=== PATIENT | female | born 1975 | race Caucasian/White ===

== ENCOUNTER 2021-02-20 10:39 | Emergency (ER) | payer MEDICAID | END 2021-02-20 11:07 | disposition left against medical advice (07) | LOC: ER 10:39 | DX: Z53.21 Procedure and treatment not carried out due to patient leaving prior to being seen by health care provider (principal); R51.9 Headache, unspecified ==

== ENCOUNTER 2021-03-23 04:49 | Emergency (ER) | payer MEDICAID ==
[~2021-03-23] VITALS: Ht 162.6 cm; Wt 109.0 kg
[2021-03-23] MEDS ORDERED: VISCOUS LIDOCAINE 2% 15 ML UDC MM PRN (05:45)
[2021-03-23] MEDS ORDERED: SODIUM CHLORIDE 0.9% 1,000 ML IV ONE (05:45)
[2021-03-23] MEDS ORDERED: MAGNESIUM/ALUMINUM HYDROXIDE/SIMETHICONE 30ML UDC PO ONE (05:45)
[2021-03-23] MEDS ORDERED: FAMOTIDINE 20MG TABLET PO ONE (05:45)
[2021-03-23] MEDS ORDERED: ONDANSETRON HCL 4MG/2ML INJ IV ONE (05:45)
[2021-03-23 05:48] LABS: BASOPHILS % 0.3 % (0.0-2.0); HEMATOCRIT. 34.6 % (36.0-48.0); HEMOGLOBIN. 11.7 g/dL (12.0-16.0); LYMPHOCYTES % 16.1 % (20.0-50.0); MEAN CORPUSCULAR HEMOGLOBIN 28.4 pg (28.0-32.0); MEAN CORPUSCULAR VOLUME 84.2 fL (81.0-99.0); MEAN PLATELET VOLUME 7.1 fl (7.4-10.4); MONOCYTES % 6.9 % (2.0-8.0); NEUTROPHILS % 75.7 % (40.0-76.0); PLATELET 364 x1000/uL (130-400); RED CELL DISTRIBUTION WIDTH 14.6 % (11.6-14.6)
[2021-03-23 05:51] LABS: CLARITY URINE CLOUDY (CLEAR); COLOR URINE YELLOW (YELLOW); KETONES URINE NEGATIVE (NEGATIVE); LEUKOCYTE ESTERASE URINE NEGATIVE (NEGATIVE); NITRITE URINE NEGATIVE (NEGATIVE); OCCULT BLOOD URINE 3+ (NEGATIVE); PH URINE 5.5 (4.5-8.0); PROTEIN URINE NEGATIVE (NEGATIVE); SPECIFIC GRAVITY URINE 1.022 (1.005-1.030); UROBILINOGEN URINE 0.2 E.U./dL (0.2-1.0)
[2021-03-23 05:56] LABS: CHLORIDE 106 mEq/L (98-107)
[2021-03-23] MEDS ORDERED: KETOROLAC 30MG/ML VIAL IV STA (06:30)
[2021-03-23] MEDS ORDERED: ONDA4TAB5 MT (08:40)
[2021-03-23] MEDS ORDERED: FAMO40TA70 MT (08:40)
[2021-03-23 08:48] VITALS: BP 137/74
== END 2021-03-23 09:00 | disposition home or self-care (01) ==
LOC: ER 04:49
DX: K29.70 Gastritis, unspecified, without bleeding (principal); D64.9 Anemia, unspecified; I10 Essential (primary) hypertension; E05.90 Thyrotoxicosis, unspecified without thyrotoxic crisis or storm
CPT/HCPCS: 36415; 76705; 80053; 81003; 81025; 82962; 83690; 85025; 93005; 96361; 96374; 96375; 99285; J1885; J2405; J7030

== ENCOUNTER 2021-05-15 20:10 | Emergency (ER) | payer MEDICAID ==
[~2021-05-15] VITALS: Ht 160 cm; Wt 111.0 kg
[~2021-05-15 20:10] MED LIST: FAMO40TA70 MT; ONDA4TAB5 MT
[2021-05-15 21:00] LABS: CLARITY URINE CLOUDY (CLEAR); COLOR URINE YELLOW (YELLOW); KETONES URINE TRACE (NEGATIVE); LEUKOCYTE ESTERASE URINE NEGATIVE (NEGATIVE); NITRITE URINE NEGATIVE (NEGATIVE); OCCULT BLOOD URINE NEGATIVE (NEGATIVE); PH URINE 5.5 (4.5-8.0); PROTEIN URINE NEGATIVE (NEGATIVE); SPECIFIC GRAVITY URINE 1.034 (1.005-1.030)
[2021-05-15 23:44] LABS: BASOPHILS % 0.6 % (0.0-2.0); EOSINOPHILS % 2.6 % (0.0-5.0); HEMATOCRIT. 33.8 % (36.0-48.0); LYMPHOCYTES % 43.7 % (20.0-50.0); MEAN CORPUSCULAR HEMOGLOBIN 27.4 pg (28.0-32.0); MEAN CORPUSCULAR VOLUME 84.2 fL (81.0-99.0); MONOCYTES % 6.7 % (2.0-8.0); NEUTROPHILS % 46.4 % (40.0-76.0); PLATELET 377 x1000/uL (130-400); RED BLOOD CELL COUNT 4.02 mill/uL (4.2-5.4); RED CELL DISTRIBUTION WIDTH 14.9 % (11.6-14.6)
[2021-05-15 23:50] LABS: CHLORIDE 110 mEq/L (98-107)
[2021-05-16 04:39] VITALS: BP 136/87
== END 2021-05-16 04:47 | disposition home or self-care (01) ==
LOC: ER 20:10
DX: J06.9 Acute upper respiratory infection, unspecified (principal); R07.81 Pleurodynia; Z20.822 Contact with and (suspected) exposure to COVID-19; I10 Essential (primary) hypertension; I51.7 Cardiomegaly; E03.9 Hypothyroidism, unspecified
CPT/HCPCS: 36415; 71045; 80053; 81003; 81025; 83880; 84484; 85025; 93005; 99285; C9803; U0003; U0005

== ENCOUNTER 2021-09-20 13:07 | Emergency (ER) | payer MEDICAID ==
[~2021-09-20] VITALS: Ht 157.5 cm; Wt 115.0 kg
[2021-09-20 15:22] LABS: BASOPHILS % 0.5 % (0.0-2.0); EOSINOPHILS % 0.6 % (0.0-5.0); HEMATOCRIT. 34.6 % (36.0-48.0); LYMPHOCYTES % 39.4 % (20.0-50.0); MEAN CORPUSCULAR HEMOGLOBIN 26.5 pg (28.0-32.0); MEAN CORPUSCULAR VOLUME 83.1 fL (81.0-99.0); MONOCYTES % 5.1 % (2.0-8.0); NEUTROPHILS % 54.4 % (40.0-76.0); PLATELET 375 x1000/uL (130-400); RED BLOOD CELL COUNT 4.16 mill/uL (4.2-5.4); RED CELL DISTRIBUTION WIDTH 15.4 % (11.6-14.6)
[2021-09-20 15:29] LABS: CHLORIDE 106 mEq/L (98-107)
[2021-09-20 16:05] LABS: CLARITY URINE CLEAR (CLEAR); COLOR URINE YELLOW (YELLOW); KETONES URINE NEGATIVE (NEGATIVE); LEUKOCYTE ESTERASE URINE NEGATIVE (NEGATIVE); NITRITE URINE NEGATIVE (NEGATIVE); OCCULT BLOOD URINE 2+ (NEGATIVE); PH URINE 5.5 (4.5-8.0); PROTEIN URINE NEGATIVE (NEGATIVE); SPECIFIC GRAVITY URINE 1.016 (1.005-1.030); UROBILINOGEN URINE 0.2 E.U./dL (0.2-1.0)
[2021-09-20] MEDS ORDERED: NAPROXEN 375MG TABLET PO ONE (16:30)
[2021-09-20] MEDS ORDERED: NAPR500T7 MT (16:30)
[2021-09-20 16:45] VITALS: BP 134/83
== END 2021-09-20 16:46 | disposition home or self-care (01) ==
LOC: ER 13:07
DX: N93.9 Abnormal uterine and vaginal bleeding, unspecified (principal); Z86.39 Personal history of other endocrine, nutritional and metabolic disease; Z98.890 Other specified postprocedural states
CPT/HCPCS: 36415; 76830; 76856; 80048; 81003; 81025; 84702; 85025; 86850; 86900; 99284

== ENCOUNTER 2021-11-01 20:18 | Emergency (ER) | payer MEDICAID ==
[~2021-11-01] VITALS: Ht 157.5 cm; Wt 118.0 kg
[~2021-11-01 20:18] MED LIST changes: +NAPR500T7 MT
[2021-11-01 21:12] LABS: CLARITY URINE CLOUDY (CLEAR); COLOR URINE YELLOW (YELLOW); KETONES URINE NEGATIVE (NEGATIVE); LEUKOCYTE ESTERASE URINE NEGATIVE (NEGATIVE); NITRITE URINE NEGATIVE (NEGATIVE); OCCULT BLOOD URINE TRACE (NEGATIVE); PROTEIN URINE NEGATIVE (NEGATIVE); SPECIFIC GRAVITY URINE 1.019 (1.005-1.030); UROBILINOGEN URINE 0.2 E.U./dL (0.2-1.0)
[2021-11-02] MEDS ORDERED: KETOROLAC 30MG/ML VIAL IM ONE (00:45)
[2021-11-02] MEDS ORDERED: NAPR-681 MT (01:44)
[2021-11-02] MEDS ORDERED: T3 PO (01:44)
[2021-11-02 01:53] VITALS: BP 162/96
== END 2021-11-02 02:03 | disposition home or self-care (01) ==
LOC: ER 20:18
DX: S29.012A Strain of muscle and tendon of back wall of thorax, initial encounter (principal); X58.XXXA Exposure to other specified factors, initial encounter; Y93.89 Activity, other specified; Y92.89 Other specified places as the place of occurrence of the external cause
CPT/HCPCS: 81003; 96372; 99283; J1885

== ENCOUNTER 2022-01-25 11:03 | Emergency (ER) | payer MEDICAID, OTHER ==
[~2022-01-25] VITALS: Ht 157.5 cm; Wt 111.0 kg
[~2022-01-25 11:03] MED LIST changes: +NAPR-681 MT; +T3 PO
[2022-01-25] MEDS ORDERED: ALBUTEROL (0.083%) 2.5MG/3ML NEB HHN STA ×2 (11:09→12:20)
[2022-01-25] MEDS ORDERED: IPRATROPIUM BROMIDE (0.02%) 0.5MG/2.5ML NEB HHN STA ×2 (11:09→12:20)
[2022-01-25 12:52] LABS: BASOPHILS % 0.6 % (0.0-2.0); EOSINOPHILS % 0.9 % (0.0-5.0); HEMATOCRIT. 32.9 % (36.0-48.0); HEMOGLOBIN. 10.5 g/dL (12.0-16.0); LYMPHOCYTES % 47.1 % (20.0-50.0); MEAN PLATELET VOLUME 7.1 fl (7.4-10.4); MONOCYTES % 10.7 % (2.0-8.0); NEUTROPHILS % 40.7 % (40.0-76.0); PLATELET 348 x1000/uL (130-400); RED BLOOD CELL COUNT 4.06 mill/uL (4.2-5.4); RED CELL DISTRIBUTION WIDTH 16.8 % (11.6-14.6)
[2022-01-25 12:55] LABS: CHLORIDE 108 mEq/L (98-107)
[2022-01-25] MEDS ORDERED: ALBU6.7H9 INH (13:50)
[2022-01-25 13:55] VITALS: BP 150/82
== END 2022-01-25 14:15 | disposition home or self-care (01) ==
LOC: ER 11:50
DX: J06.9 Acute upper respiratory infection, unspecified (principal); J98.01 Acute bronchospasm; I11.0 Hypertensive heart disease with heart failure; I50.9 Heart failure, unspecified; E03.9 Hypothyroidism, unspecified; E66.01 Morbid (severe) obesity due to excess calories; Z68.41 Body mass index [BMI] 40.0-44.9, adult
CPT/HCPCS: 36415; 71045; 80053; 83880; 84484; 85025; 93005; 94640; 99285; Z7610

== ENCOUNTER 2022-11-08 17:51 | Emergency (ER) | payer MEDICAID ==
[~2022-11-08] VITALS: Ht 157.5 cm; Wt 108.0 kg
[~2022-11-08 17:51] MED LIST changes: +ALBU6.7H3 INH
[2022-11-08 17:55] VITALS: BP 175/100
== END 2022-11-08 20:21 | disposition home or self-care (01) ==
LOC: ER 17:56
DX: S80.01XA Contusion of right knee, initial encounter (principal); M17.12 Unilateral primary osteoarthritis, left knee; I10 Essential (primary) hypertension; W10.8XXA Fall (on) (from) other stairs and steps, initial encounter; Y93.01 Activity, walking, marching and hiking; Y92.89 Other specified places as the place of occurrence of the external cause
CPT/HCPCS: 73560; 99283

== ENCOUNTER 2023-05-16 08:13 | Emergency (ER) | payer MEDICAID ==
[~2023-05-16] VITALS: Ht 157.5 cm; Wt 108.0 kg
[2023-05-16 08:34] VITALS: O2SAT 100
[2023-05-16] MEDS ORDERED: BENZ200C52 MT (10:24)
[2023-05-16 11:30] VITALS: BP 153/98; PULSE 62; RESP 18; TEMP 98.6
== END 2023-05-16 11:36 | disposition home or self-care (01) ==
LOC: ER 08:28
DX: J06.9 Acute upper respiratory infection, unspecified (principal); I10 Essential (primary) hypertension; Z98.890 Other specified postprocedural states; Z86.39 Personal history of other endocrine, nutritional and metabolic disease
CPT/HCPCS: 71045; 99283

== ENCOUNTER 2023-06-06 14:18 | Emergency (ER) | payer MEDICAID ==
[~2023-06-06] VITALS: Ht 157.5 cm; Wt 105.0 kg
[~2023-06-06 14:18] MED LIST changes: +BENZ200C52 MT
[2023-06-06 14:33] VITALS: O2SAT 99
[2023-06-06] MEDS ORDERED: LORAZEPAM 1MG TABLET PO ONE (14:45)
[2023-06-06] MEDS ORDERED: LORAZEPAM 1MG TABLET PO NR (17:00)
[2023-06-06 17:56] VITALS: BP 170/97; PULSE 66; RESP 16; TEMP 97.5
== END 2023-06-06 18:21 | disposition home or self-care (01) ==
LOC: ER 14:18
DX: F43.9 Reaction to severe stress, unspecified (principal); I10 Essential (primary) hypertension; Z98.890 Other specified postprocedural states; M19.90 Unspecified osteoarthritis, unspecified site
CPT/HCPCS: 81025; 99283; Z7610 ×3

== ENCOUNTER 2023-07-08 13:25 | Emergency (ER) | payer MEDICAID ==
[~2023-07-08] VITALS: Ht 167.6 cm; Wt 108.0 kg
[2023-07-08 13:29] VITALS: O2SAT 98
[2023-07-08 14:18] LABS: CLARITY URINE CLEAR (CLEAR); COLOR URINE YELLOW (YELLOW); GLUCOSE URINE NEGATIVE (NEGATIVE); KETONES URINE NEGATIVE (NEGATIVE); LEUKOCYTE ESTERASE URINE NEGATIVE (NEGATIVE); NITRITE URINE NEGATIVE (NEGATIVE); OCCULT BLOOD URINE NEGATIVE (NEGATIVE); PH URINE 6.5 (4.5-8.0); PROTEIN URINE NEGATIVE (NEGATIVE); SPECIFIC GRAVITY URINE 1.021 (1.005-1.030); UROBILINOGEN URINE 0.2 E.U./dL (0.2-1.0)
[2023-07-08 14:36] LABS: BASOPHILS % 0.8 % (0.0-2.0); EOSINOPHILS % 1.8 % (0.0-5.0); HEMATOCRIT. 36.6 % (36.0-48.0); HEMOGLOBIN. 12.5 g/dL (12.0-16.0); LYMPHOCYTES % 41.5 % (20.0-50.0); MEAN CORPUSCULAR HEMOGLOBIN 30.1 pg (28.0-32.0); MEAN CORPUSCULAR HGB CONC 34.1 g/dL (31.0-37.0); MEAN CORPUSCULAR VOLUME 88.2 fL (81.0-99.0); MEAN PLATELET VOLUME 7.5 fl (7.4-10.4); MONOCYTES % 6.5 % (2.0-8.0); NEUTROPHILS % 49.4 % (40.0-76.0); PLATELET 377 x1000/uL (130-400); RED BLOOD CELL COUNT 4.15 mill/uL (4.2-5.4); WHITE BLOOD COUNT 7.8 x1000/uL (4.5-11.0)
[2023-07-08 14:56] LABS: CHLORIDE 107 mEq/L (98-107); INDEX HEMOLYSI 1 (1-3); INDEX ICTERIC 1 (1-4); INDEX LIPEMIC 1 (1-3); SODIUM 137 mEq/L (136-145)
[2023-07-08 15:05] LABS: ALANINE AMINOTRANSFERASE 24 IU/L (13-61); ALBUMIN 3.2 g/dL (3.4-5.0); ASPARTATE AMINOTRANSFERASE 18 IU/L (15-37); BILIRUBIN TOTAL 0.3 mg/dL (0.1-1.0); CALCIUM 8.7 mg/dL (8.5-10.1); CARBON DIOXIDE 28 mEq/L (21-32); CREATININE 0.7 mg/dL (0.6-1.3); GLUCOSE 99 mg/dL (70-105); PROTEIN TOTAL 7.6 g/dL (6.0-8.3); UREA NITROGEN BLOOD 14 mg/dL (7-21)
[2023-07-08] MEDS ORDERED: KETOROLAC 30MG/ML VIAL IM ONE (15:15)
[2023-07-08] MEDS ORDERED: MAGNESIUM/ALUMINUM HYDROXIDE/SIMETHICONE 30ML UDC PO ONE (15:15)
[2023-07-08] MEDS ORDERED: LIDO700A15 TP (16:34)
[2023-07-08] MEDS ORDERED: MAG355OR21 MT (16:34)
[2023-07-08 17:02] VITALS: BP 133/80; PULSE 80; RESP 18; TEMP 98.7
== END 2023-07-08 17:03 | disposition home or self-care (01) ==
LOC: ER 13:25
DX: K29.70 Gastritis, unspecified, without bleeding (principal); I10 Essential (primary) hypertension; Z86.39 Personal history of other endocrine, nutritional and metabolic disease; Z98.890 Other specified postprocedural states
CPT/HCPCS: 99284; 71045; 80053; 81003; 81025; 83690; 85025; 36415; 96372; J1885

== ENCOUNTER 2023-11-04 19:52 | Emergency (ER) | payer MEDICAID ==
[~2023-11-04 19:52] MED LIST changes: +LIDO700A15 TP; +MAG355OR21 MT
== END 2023-11-04 22:45 | disposition left against medical advice (07) ==
LOC: ER 19:52
DX: M54.9 Dorsalgia, unspecified (principal); Z53.21 Procedure and treatment not carried out due to patient leaving prior to being seen by health care provider

== ENCOUNTER 2024-05-26 17:58 | Emergency (ER) | payer MEDICAID, OTHER ==
[~2024-05-26] VITALS: Ht 167.6 cm; Wt 108.0 kg
[2024-05-26 18:02] VITALS: O2SAT 98
[2024-05-26 18:45] LABS: CLARITY URINE CLEAR (CLEAR); COLOR URINE DARK YELLOW (YELLOW); GLUCOSE URINE NEGATIVE (NEGATIVE); KETONES URINE TRACE (NEGATIVE); LEUKOCYTE ESTERASE URINE NEGATIVE (NEGATIVE); NITRITE URINE NEGATIVE (NEGATIVE); OCCULT BLOOD URINE NEGATIVE (NEGATIVE); PH URINE 5.5 (4.5-8.0); PROTEIN URINE NEGATIVE (NEGATIVE); SPECIFIC GRAVITY URINE 1.028 (1.005-1.030)
[2024-05-26 19:08] LABS: BASOPHILS % 0.5 % (0.0-2.0); EOSINOPHILS % 1.3 % (0.0-5.0); HEMATOCRIT. 36.4 % (36.0-48.0); LYMPHOCYTES % 38.6 % (20.0-50.0); MEAN CORPUSCULAR HEMOGLOBIN 30.3 pg (28.0-32.0); MEAN CORPUSCULAR VOLUME 91.8 fL (81.0-99.0); MEAN PLATELET VOLUME 7.2 fl (7.4-10.4); MONOCYTES % 6.8 % (2.0-8.0); NEUTROPHILS % 52.8 % (40.0-76.0); PLATELET 327 x1000/uL (130-400); RED BLOOD CELL COUNT 3.96 mill/uL (4.2-5.4); RED CELL DISTRIBUTION WIDTH 13.4 % (11.6-14.6); WHITE BLOOD COUNT 8.1 x1000/uL (4.5-11.0)
[2024-05-26 19:14] LABS: CARBON DIOXIDE 28 mEq/L (21-32); CHLORIDE 108 mEq/L (98-107); SODIUM 140 mEq/L (136-145)
[2024-05-26 19:19] LABS: CREATININE 0.8 mg/dL (0.6-1.0)
[2024-05-26 19:20] LABS: GLUCOSE 97 mg/dL (70-105); UREA NITROGEN BLOOD 18 mg/dL (9-23)
[2024-05-26 19:21] LABS: ALANINE AMINOTRANSFERASE 10 IU/L (10-49); ALBUMIN 4.3 g/dL (3.2-4.8); ASPARTATE AMINOTRANSFERASE 16 IU/L (<34)
[2024-05-26 19:22] LABS: BILIRUBIN DIRECT < 0.1 mg/dL (<=3.0); BILIRUBIN TOTAL 0.3 mg/dL (0.1-1.0); PROTEIN TOTAL 7.3 g/dL (6.0-8.3)
[2024-05-26 19:53] VITALS: TEMP 98.5
[2024-05-26] MEDS: KETOROLAC 30MG/ML VIAL IM ONE (19:53)
[2024-05-26] MEDS: ACETAMINOPHEN 325MG TABLET PO ONE (19:53)
[2024-05-26] MEDS ORDERED: ACET-2708 MT (22:00)
[2024-05-26 22:10] VITALS: BP 150/81; PULSE 59; RESP 16; O2SAT 100
== END 2024-05-26 22:12 | disposition home or self-care (01) ==
LOC: ER 17:58
DX: R10.9 Unspecified abdominal pain (principal); I10 Essential (primary) hypertension; Z98.890 Other specified postprocedural states; E03.9 Hypothyroidism, unspecified; Z79.899 Other long term (current) drug therapy
CPT/HCPCS: 99285; 76705; 80076; 80048; 81003; 81025; 83690; 85025; 36415; 96372; J1885

== ENCOUNTER 2024-07-31 09:39 | Emergency (ER) | payer MEDICAID ==
[~2024-07-31] VITALS: Ht 157.5 cm; Wt 108.8 kg
[~2024-07-31 09:39] MED LIST changes: +ACET-2708 MT
[2024-07-31 09:47] VITALS: O2SAT 98
[2024-07-31] MEDS: ACETAMINOPHEN 325MG TABLET PO STA (11:53)
[2024-07-31] MEDS ORDERED: CYCL5TAB MT (13:35)
[2024-07-31] MEDS ORDERED: NAPR-681 PO (13:35)
[2024-07-31 13:55] VITALS: BP 121/79; PULSE 80; RESP 16; TEMP 36.78072; O2SAT 98
== END 2024-07-31 14:00 | disposition home or self-care (01) ==
LOC: ER 09:50
DX: S16.1XXA Strain of muscle, fascia and tendon at neck level, initial encounter (principal); I10 Essential (primary) hypertension; Z79.899 Other long term (current) drug therapy; Z86.39 Personal history of other endocrine, nutritional and metabolic disease; Z98.890 Other specified postprocedural states; V49.9XXA Car occupant (driver) (passenger) injured in unspecified traffic accident, initial encounter; Y93.89 Activity, other specified; Y92.89 Other specified places as the place of occurrence of the external cause; Y99.8 Other external cause status
CPT/HCPCS: 71045; 72100; 73562; 81025; 99284

== ENCOUNTER 2025-05-14 16:11 | Emergency (ER) | payer MEDICAID ==
[~2025-05-14] VITALS: Ht 162.6 cm; Wt 119.2 kg
[~2025-05-14 16:11] MED LIST changes: +CYCL5TAB3 MT; +LIDO-53 TP; -LIDO700A15 TP; +NAPR-1486 MT; +NAPR-681 PO; -NAPR500T7 MT
[2025-05-14 16:19] VITALS: O2SAT 98
[2025-05-14] MEDS ORDERED: CEPH500T MT (20:32)
[2025-05-14 20:51] VITALS: BP 180/88; PULSE 71; RESP 16; TEMP 36.6; O2SAT 98
== END 2025-05-14 21:00 | disposition home or self-care (01) ==
LOC: ER 16:11
DX: N63.42 Unspecified lump in left breast, subareolar (principal); I10 Essential (primary) hypertension; Z79.899 Other long term (current) drug therapy; Z86.39 Personal history of other endocrine, nutritional and metabolic disease
CPT/HCPCS: 76641; 99284